=== PATIENT | male | born 1995 ===

== ENCOUNTER 2025-01-13 19:02 | Inpatient (IN) | payer OTHER, SELFPAY ==
[2025-01-13] VITALS (9 sets, daily range): BP systolic 128–159; BP diastolic 83–102; BMI 33.2
[2025-01-13 14:54] LABS: Glucose - Point of Care 109 mg/dl (70-99)
--- NOTE | 2025-01-13 15:13 | ED.GENMED ---
History of Present Illness
<DAMI Armenta - Last Filed: 01/13/25 18:59>
General
Chief Complaint: Seizure
Source: patient
Exam Limitations: none
Time Seen by Provider: 01/13/25 15:11
Nursing documentation reviewed up to this point in time: agreed with
History of Present Illness
History of Present Illness:
Patient is a 29-year-old male presents to the ER for evaluation. Patient is from [facility].
I spoke with staff from the [facility]. Patient arrived to their facility 5 AM this morning he was very tachycardic and had orthostatic hypotension. They gave him 25 mg of Phenergan 2l of fluids and he seemed to improve. They sent him back to
his cell and prior to arrival patient apparently was standing and fell and hit his head. There was no seizure activity witnessed however pt was given ATivan 2 mg IV DIRECTOR RETIREMENT.
Patient presents to the ER awake alert he is able to give questions he complains of feeling nauseous and jittery. He admits to using fentanyl and last used yesterday. He denies any obvious benzo use but it is unclear of what was in the fentanyl as
well.
He denies any alcohol use.
He denies any pain. no history of seizures.
Pt was recently admitted to [facility]
Review of Systems
<DAMI Armenta - Last Filed: 01/13/25 18:59>
Review of Systems
Allergies reviewed?: Yes
All Other Systems: ROS reviewed and negative except as documented in HPI and ROS
Constitutional: Reports no symptoms
Respiratory: Reports no symptoms
Cardiac: Reports no symptoms
ABD/GI: Reports nausea
Musculoskeletal: Reports no symptoms
Skin: Reports no symptoms
Neurological: Reports other ('I feel off )
Psychiatric: Reports no symptoms
Phy Exam
<DAMI Armenta - Last Filed: 01/13/25 18:59>
General Physical Exam
General Presentation: no apparent distress
General age: appears stated age
General Skin: warm and dry
General Habitus: normal
General Mental: alert
General Hydration: dry mucous membranes
Cardiovascular Exam
Cardiovascular Exam: tachycardia
Pulmonary Exam
Pulmonary Exam: lungs clear and no respiratory distress
Neurological Exam
Neurological Exam: alert, oriented x3 and other (Tremulous)
Musculoskeletal Exam
Musculoskeletal Exam: full ROM
Skin Exam
Skin Exam: normal color and warm/dry
Psychiatric Exam
Psychiatric Exam: normal mood/affect
Course
<DAMI Armenta - Last Filed: 01/13/25 18:59>
Orders/Labs/Results
Orders:
Orders
01/13/25 15:29
Electrocardiogram (*1) Stat
Reason for Study: Abdominal Pain
Cardiac Monitoring- Treatment ONCE
EKG- Treatment ONCE
IV Insert/Care/Rem.- Treatment PRN
0.9% Sodium Chloride 1000 ml [Nss] 1,000 ml IV BOLUS
Lorazepam [Ativan] 1 mg IV NOW STA
Ondansetron Injectable [Zofran] 4 mg IV NOW STA
01/13/25 15:31
CT Head W/o Iv Contrast Urgent
Comment:
Reason For Exam: trauma
01/13/25 15:44
Alcohol Urgent
Complete Blood Count/With Diff Urgent
Comprehensive Metabolic Panel Urgent
Creatine Phosphokinase Urgent
Comment: ADDON
Magnesium Urgent
Comment: ADDON
Prolactin Urgent
Comment: ADDON
01/13/25 16:01
Prochlorperazine [Compazine] 10 mg IV NOW STA
01/13/25 16:23
Add On- LAB Urgent
Tests Added?: serum alcohol
01/13/25 16:57
COVID-19 Antigen Urgent
Source: Nasal Swab
Influenza A+B Rapid Molecular Urgent
ARI Source: Nasal Swab
Specimen Description:
01/13/25 17:20
0.9% Sodium Chloride 500 ml [Nss] 500 ml IV BOLUS
Lorazepam [Ativan] 1 mg IV NOW STA
01/13/25 18:02
Lorazepam [Ativan] 1 mg IV NOW STA
01/13/25 18:39
Admit/Transfer Patient As Directed
Co-Sign Provider:
Level of Care: Inpatient admission
Assign to:: IMU- Intermediate Care
Physician / Group: Denver Macedo
Diagnosis: opioid withdraw
Reason for Hospitalization: opioid withdraw
Expected length of stay greater than two midnights?: Yes
ELOS- Estimated Length of Stay in days: 3
I certify the patient meets the requirements for IP care: Yes
PRN Pain Medication Management As Directed
May give lesser potent ordered pain med per pt: Yes
preference::
Protocol:: Medication orders for pain may be administered in a
manner that supports deferring to patient preference
when the pt is:
- Requesting an ordered lesser potent pain medication.
Least to most potent pain medications are defined
as: acetaminophen < NSAID < tramadol < opioids
(morphine, oxycodone, hydromorphone).
- Requesting a lesser dose of the same medication IF
ORDERED.
- Requesting a less intrusive route of administration
if both routes are prescribed by the provider (PO <
IV).
01/13/25 18:45
NEUROLOGY CONSULT Urgent
Consulting Provider: Kimberly Gutierrez
Was physician already notified: Yes
Reason for consult: seizure /withdrawl
01/13/25 18:48
Add On- LAB Urgent
Tests Added?: cpk, prolactin , magnesium
01/13/25 18:58
Urine Drug Abuse Screen Urgent
01/13/25 19:17
Fentanyl, Urine Urgent
Urine Drug Abuse Screen Urgent
Date Specimen was Collected: 01/13/25
Time Specimen was Collected: 19:16
Abnormal Lab Results
01/13/25 01/13/25
14:52 15:44
WBC 11.4 H 10^3/uL
(4.8-10.8)
Abs Immat Gran (auto) 0.1 H 10^3/uL
(0-0.05)
Absolute Neuts (auto) 9.9 H 10^3/uL
(1.4-6.5)
Absolute Lymphs (auto) 1.0 L 10^3/uL
(1.2-3.4)
Immature Gran % 0.8 H %
(0-0.5)
Neutrophils % 86.9 H %
(42.2-75.2)
Lymphocytes % 8.8 L %
(20.5-51.1)
Glucose 115 H mg/dl
(70-99)
AST 133 H U/L
(17-59)
ALT 151 H U/L
(0-50)
Creatine Kinase 289 H U/L
(55-170)
POC Glucose 109 H mg/dl
(70-99)
01/13/25 15:44
01/13/25 15:44
Vital Signs
Initial and Last Documented VS:
Initial Vital Signs
Temp Pulse Resp BP Pulse Ox
98.7 F 106 20 150/83 100
01/13/25 14:45 01/13/25 14:45 01/13/25 14:45 01/13/25 14:45 01/13/25 14:45
Last Documented Vital Signs
Temp Pulse Resp BP Pulse Ox
98.5 F 100 15 139/90 100
01/13/25 18:32 01/13/25 19:15 01/13/25 19:15 01/13/25 19:00 01/13/25 19:00
Windlace Machine Operator consulted with Physician
Windlace Machine Operator consulted with physician?: Yes
Name of Physician Consulted: Juanah
<Puma Luna MD - Last Filed: 01/13/25 20:02>
Orders/Labs/Results
Orders:
Orders
01/13/25 15:29
Electrocardiogram (*1) Stat
Reason for Study: Abdominal Pain
Cardiac Monitoring- Treatment ONCE
EKG- Treatment ONCE
IV Insert/Care/Rem.- Treatment PRN
0.9% Sodium Chloride 1000 ml [Nss] 1,000 ml IV BOLUS
Lorazepam [Ativan] 1 mg IV NOW STA
Ondansetron Injectable [Zofran] 4 mg IV NOW STA
01/13/25 15:31
CT Head W/o Iv Contrast Urgent
Comment:
Reason For Exam: trauma
01/13/25 15:44
Alcohol Urgent
Complete Blood Count/With Diff Urgent
Comprehensive Metabolic Panel Urgent
Creatine Phosphokinase Urgent
Comment: ADDON
Magnesium Urgent
Comment: ADDON
Prolactin Urgent
Comment: ADDON
01/13/25 16:01
Prochlorperazine [Compazine] 10 mg IV NOW STA
01/13/25 16:23
Add On- LAB Urgent
Tests Added?: serum alcohol
01/13/25 16:57
COVID-19 Antigen Urgent
Source: Nasal Swab
Influenza A+B Rapid Molecular Urgent
ARI Source: Nasal Swab
Specimen Description:
01/13/25 17:20
0.9% Sodium Chloride 500 ml [Nss] 500 ml IV BOLUS
Lorazepam [Ativan] 1 mg IV NOW STA
01/13/25 18:02
Lorazepam [Ativan] 1 mg IV NOW STA
01/13/25 18:39
Admit/Transfer Patient As Directed
Co-Sign Provider:
Level of Care: Inpatient admission
Assign to:: IMU- Intermediate Care
Physician / Group: Denver Macedo
Diagnosis: opioid withdraw
Reason for Hospitalization: opioid withdraw
Expected length of stay greater than two midnights?: Yes
ELOS- Estimated Length of Stay in days: 3
I certify the patient meets the requirements for IP care: Yes
PRN Pain Medication Management As Directed
May give lesser potent ordered pain med per pt: Yes
preference::
Protocol:: Medication orders for pain may be administered in a
manner that supports deferring to patient preference
when the pt is:
- Requesting an ordered lesser potent pain medication.
Least to most potent pain medications are defined
as: acetaminophen < NSAID < tramadol < opioids
(morphine, oxycodone, hydromorphone).
- Requesting a lesser dose of the same medication IF
ORDERED.
- Requesting a less intrusive route of administration
if both routes are prescribed by the provider (PO <
IV).
01/13/25 18:45
NEUROLOGY CONSULT Urgent
Consulting Provider: Kimberly Gutierrez
Was physician already notified: Yes
Reason for consult: seizure /withdrawl
01/13/25 18:48
Add On- LAB Urgent
Tests Added?: cpk, prolactin , magnesium
01/13/25 18:58
Urine Drug Abuse Screen Urgent
01/13/25 19:17
Fentanyl, Urine Urgent
Urine Drug Abuse Screen Urgent
Date Specimen was Collected: 01/13/25
Time Specimen was Collected: 19:16
Abnormal Lab Results
01/13/25 01/13/25
14:52 15:44
WBC 11.4 H 10^3/uL
(4.8-10.8)
Abs Immat Gran (auto) 0.1 H 10^3/uL
(0-0.05)
Absolute Neuts (auto) 9.9 H 10^3/uL
(1.4-6.5)
Absolute Lymphs (auto) 1.0 L 10^3/uL
(1.2-3.4)
Immature Gran % 0.8 H %
(0-0.5)
Neutrophils % 86.9 H %
(42.2-75.2)
Lymphocytes % 8.8 L %
(20.5-51.1)
Glucose 115 H mg/dl
(70-99)
AST 133 H U/L
(17-59)
ALT 151 H U/L
(0-50)
Creatine Kinase 289 H U/L
(55-170)
POC Glucose 109 H mg/dl
(70-99)
01/13/25 15:44
01/13/25 15:44
Vital Signs
Initial and Last Documented VS:
Initial Vital Signs
Temp Pulse Resp BP Pulse Ox
98.7 F 106 20 150/83 100
01/13/25 14:45 01/13/25 14:45 01/13/25 14:45 01/13/25 14:45 01/13/25 14:45
Last Documented Vital Signs
Temp Pulse Resp BP Pulse Ox
98.5 F 100 15 139/90 100
01/13/25 18:32 01/13/25 19:15 01/13/25 19:15 01/13/25 19:00 01/13/25 19:00
Alidalt;DAMI Armenta - Last Filed: 01/13/25 18:59>
MDM/Problems Addressed
Differential Diagnosis Includes:
Not limited withdrawal, seizure, dehydration, drug abuse
MDM/Problems Addressed:
As documented patient is a 29-year-old male sent from [facility] for evaluation. Patient is new to them and today presented very orthostatic and tachycardic when he first arrived. He initially was given Phenergan and IV
fluids at the [facility] earlier .Patient then however had a witnessed fall in his cell. There was a question of seizure. However staff did not visualize seizures.
patient presents awake alert very tremulous but able to give history. He admits to last using fentanyl yesterday. Patient was given fluids and several doses of Ativan nausea medicine fluids. He is tachycardic and very tremulous
1800:
alf guards reported that just now had a witnessed seizure by loan workout officer lasted approximately 10 seconds. Residential guards report patient started to stare and then was not responding and started having general shakes lasting approximately
10 seconds. I was called in, pt was tremulous however he is attempting to answer questions but does seem still little confused. Patient was just given Ativan now. Patient was eval by ED physician. CT head negative. etoh neg . Patient is
afebrile white count elevated 11.4 stable hemoglobin normal renal function, LFTs elevated 133 and 151 with normal alk phos and normal total bili
Patient will require admission for further evaluation of tremors/possible seizures withdrawal. Patient will require ICU level of admission.
Patient has received multiple doses of Ativan. Case discussed admitting hospitalist. I did review case with neurology as recommended CPK prolactin magnesium added onto labs. Will s attempt to get urine
Patient did report that he was recently at [facility] records obtained which were limited from January 04, he was admitted to the ICU
Chronic conditions affecting care:
drug abuse
<DAMI Armenta - Last Filed: 01/13/25 18:59>
*Radiology
Radiology exam reviewed: radiology read reviewed
*Pulse Oximetry
Patient hypoxic: no
*EKG
Interpreted by ED Provider?: Yes
Heart Rate: 103
Rate: tachycardiac
Interval: long QT
*Critical Care Note
Total Time (30-74mins, 75-104mins- exclusive of procedures): Not Applicable
comment:
Critical care statement: A total of 40 minutes of critical care time was provided for this patient. This includes management of unstable vital signs, evaluation of the patient at bedside, reviewing the patient's pertinent medical records, discussion
with consultants, review of old EKGs and review of pertinent medical records. This time with separate from time utilized to perform the aforementioned documented procedures
<DAMI Armenta - Last Filed: 01/13/25 18:59>
Patient Management
Discussion with other providers: Hospitalist and Balance Staff Staker (neuro DR Gutierrez )
ED Attending Note
<DAMI Armenta - Last Filed: 01/13/25 18:59>
-
Portions of this chart may have been created with voice recognition software.� Occasional wrong word or��sound alike� substitutions may have occurred due to the inherent limitations of voice recognition software.
<Puma Luna MD - Last Filed: 01/13/25 20:02>
ED Attending Note
Patient seen and examined by attending physician: Yes
ED Attending Note:
Patient presents to ED from [facility] after seizure-like activity noted when he fell down. Patient was admitted last night, when initially he was found to be hypotensive with withdrawal-like symptoms. Patient does admit to
having used fentanyl 24 hours ago. Patient feels as though he is going to withdrawal, which she has experienced in the past. In fact, he was admitted at [facility] and treated (detox) last week. Patient denies chest pain. Denies
palpitations. Patient does admit to nausea sensation. Denies diarrhea. Denies shortness of breath. Denies fever. Denies blurred vision. Denies dizziness. Denies loss of sensation or weakness. Denies tongue biting. Denies urinary or bowel
incontinence.
Physical Exam
General: mild distress, acutely ill. afebrile. tachycardic.
Head: nc/at. eomi
Neck: supple. normal range of motion.
Heart: tachycardic, no murmur.
Lungs: no acute respiratory distress. clear bilaterally
Abdomen: normal bowel sounds. not tender.
Neuro: alert and oriented x 3. no focal neurological deficits. tremulous
Skin: no rash
Psychiatric: cooperative but anxious appearing
Extremities: no edema. no calf tenderness.
Patient requiring multiple doses of Ativan after initial treatment, secondary to continuous tremulous behavior and diaphoresis. Despite all improvement, patient noted to have seizure episode lasting less than 2 minutes, with spontaneous resolution.
As such, decision made to admit the patient for further evaluation and treatment. Patient will be admitted to ICU.
Discharge Plan
Departure
Patient Disposition: Admit
Date of Disposition: 01/13/25
Time of Disposition: 18:10
Admit to: ICU
Admit to doctor: hospitalist
Presentation/result/management discussed w/ accepting MD/DO: Hospitalist
Patient with high blood pressure during this ER visit?: Yes
Condition: Fair
Covid-19: Not Applicable
Discharge Problem:
Seizure, Acute drug withdrawal syndrome
Interventions
Interventions:
*Risk Screen - Suicide Last Done: 01/13/25 14:45
*General Assessment Last Done: 01/13/25 14:45
*Neglect/Abuse Screening Last Done: 01/13/25 14:45
ED- Cardiac Assessment Last Done: 01/13/25 15:24
ED- Neurological Assessment Last Done: 01/13/25 15:24
ED-Psychological Assessment Last Done: 01/13/25 15:24
ED- Pulmonary Assessment Last Done: 01/13/25 15:24
[2025-01-13] MEDS: NSS 1000 IV ×2 (15:47→21:35)
[2025-01-13] MEDS: ATIVAN 1 MG IV ×3 (15:50→18:10)
[2025-01-13 15:54] LABS: % Basophils 0.1 % (0-2); % Immature Granulocytes 0.8 % (0-0.5); % Lymphocytes 8.8 % (20.5-51.1); % Monocytes 3.4 % (1.7-9.3); % Neutrophils 86.9 % (42.2-75.2); Absolute Immature Granulocytes 0.1 10^3/uL (0-0.05); Absolute Monocytes 0.4 10^3/uL (0.1-0.6); Absolute Neutrophils 9.9 10^3/uL (1.4-6.5); Hematocrit 41.4 % (39.0-52.0); Hemoglobin 13.8 g/dL (13.0-18.0); Mean Corp Hgb Conc. 33.3 g/dL (33.0-37.0); Mean Corpuscular Hgb 28.6 pg (27.0-31.0); Mean Corpuscular Volume 85.9 fL (80.0-94.0); Mean Platelet Volume 9.9 fL (7.4-10.4); Nucleated Red Blood Cells % 0 % (-); Platelet Count 320 10^3/uL (130-400); Red Blood Cell Count 4.82 10^6/uL (4.70-6.10); Red Cell Dist. Width 13.7 % (11.5-14.5); White Blood Cell Count 11.4 10^3/uL (4.8-10.8)
[2025-01-13 16:08] LABS: ALT (SGPT) 151 U/L (0-50); AST (SGOT) 133 U/L (17-59); Albumin 4.7 g/dl (3.5-5.0); Alkaline Phosphatase 98 U/L (38-126); Blood Urea Nitrogen 12 mg/dl (9-20); Calcium 8.8 mg/dl (8.4-10.2); Carbon Dioxide 24 mmol/L (22-30); Chloride 103 mmol/L (98-107); Estimated Creatinine Clearance > 125 ml/min; Glucose 115 mg/dl (70-99); Potassium 3.5 mmol/L (3.5-5.1); Sodium 138 mmol/L (135-145); Total Bilirubin 1.3 mg/dl (0.2-1.3); eGFR > 60.00
[2025-01-13 16:56] LABS: Alcohol None Detected
[2025-01-13 17:47] LABS: COVID-19 Antigen Negative (Negative)
--- NOTE | 2025-01-13 18:09 | HPS.HSE ---
Family Physician
-
Family Physician: Facility [facility]
Chief Complaint
-
withdraw seizure
History of Present Illness
Patient is a 29-year-old male with past medical history significant for opioid dependency who presented to [facility] ED for evaluation for withdraw [facility]. Correctional facility infirmary staff
reported to ED staff that patient arrived at facility approximately 0500 today and presented with tachycardia and orthostatic hypotension. He was administered Phenergan 25mg and gave 2 liter IVF bolus, patient improved and was sent to cell. Just
prior to sending to ED for evaluation patient fell and hit head, no seizure activity was observed at that time. ED reported patient had witnessed seizure in ED by correction staff, where patient started to stare, was not responding and having
shaking for approximately 10 seconds. Patient states he uses anywhere from 4 bags to an entire bundle of fentanyl a day. Last used was yesterday, unknown quantity yesterday. Patient stated he spent 5 days at [facility] for seizure withdraw
with admission on [facility] Saturday (01/03/2025), he states he was discharged with no home medications. Patient denies any dizziness, nausea, vomiting or diarrhea.
Medical History
Past Medical History
Past Medical History: Reports None
Past Surgical History: Reports None
Social History
Tobacco: Non-smoker
Alcohol: None
Drug: Narcotics (Fentanyl 4 bags to a bundle per day for a long time (does not quanitfy))
Personal: Single
Living: With Family
Employment: Employed
Family History
Family History: Not pertinent
Allergies / Home Medications
Allergies reflects when Allergies were last updated in [employer].
Home Medications with original date entered in [employer]
Allergy/Medication List:
Allergies
Allergy/AdvReac Type Severity Reaction Status Date / Time
ondansetron [From Zofran] Allergy AGITATION Verified 01/13/25 15:38
Penicillins Allergy Unknown Verified 01/13/25 14:44
Home Medications
acetaminophen 300 mg-codeine 30 mg tablet 1 tab PO .TAPER 01/13/25
clonazepam 2 mg tablet 2 mg PO .TAPER 01/13/25
clonidine HCl 0.1 mg tablet 0.1 mg PO .TAPER 01/13/25
loperamide 2 mg tablet (Anti-Diarrheal (loperamide)) 2 mg PO TIDPRN PRN diarrhea 01/13/25
ondansetron HCl 4 mg tablet 4 mg PO Q8HPRN PRN nausea 01/13/25
Review of Systems
-
History Source: Patient
Constitutional: Reports No Symptoms
EENT: Reports No Symptoms
Respiratory: Reports No Symptoms
Cardiac: Reports No Symptoms
Abdomen/GI: Reports No Symptoms
: Reports No Symptoms
Musculoskeletal: Reports No Symptoms
Skin: Reports No Symptoms
Neurological: Reports Other (tremors and just feels off )
Endocrine: Reports No Symptoms
Hematologic/Lymphatic: Reports No Symptoms
Psych: Reports No Symptoms
Physical Exam
Vital Signs
Vital Signs
Temp Pulse Resp BP Pulse Ox
98.6 F 97 20 145/102 100
01/13/25 16:59 01/13/25 17:00 01/13/25 17:00 01/13/25 17:00 01/13/25 17:00
Physical Exam
General: Well Developed, Well Nourished, No Apparent Distress, Conversant and Obese
HEENT: NormoCephalic, Moist mucous membranes, Atraumatic, [place] Conjunctivae, Nose Appears Normal and Ears Appear Normal
Respiratory: Clear and Non Labored Respirations
Cardiac: S1/S2, Regular Rhythm and Tachycardia; No Murmur, Rub or Gallop
Breast: Deferred by me
GI: Soft, Non Tender, Non Distended and Normal Bowel Sounds; No Organomegaly
Rectal: Deferred by Provider
Genito-urinary: Deferred by me
Musculoskeletal: No Clubbing, No Cyanosis and No Edema
Skin: No Rash
Neuro: Awake, Alert, AO x 3, Nonfocal/grossly intact and Tremors
Psych: Calm and Intact Judgment/Insight
Laboratory Results
-
01/13/25 15:44
01/13/25 15:44
Laboratory Results
Total Bilirubin 1.3 mg/dl (0.2-1.3) 01/13/25 15:44
AST 133 U/L (17-59) H 01/13/25 15:44
ALT 151 U/L (0-50) H 01/13/25 15:44
Alkaline Phosphatase 98 U/L (38-126) 01/13/25 15:44
Data Reviewed
-
CT Scan: Report Reviewed by me (Head: No evidence of acute intracranial abnormality.)
Medical Tests (Nuc Med, Echo, EKG etc): Report Reviewed by me (EKG: SINUS TACHYCARDIA LEFT AXIS DEVIATION PROLONGED QT)
Lab Data: Labs Reviewed by me (WBC 11.4, AST 133, ALT 151)
Impression/Plan
-
IMPRESSION/PLAN:
#opioid withdraw with seizure??
Recent admission to [facility] with acute WDS and questionable Sz; ICU admission and Precedex; awaiting records
EKG: SINUS TACHYCARDIA
LEFT AXIS DEVIATION
PROLONGED QT
Head CT: No evidence of acute intracranial abnormality.
WBC 11.4, AST 133, ALT 151
- Admit to IMU
- Consult Neurology
- COWS protocol
- Neurochecks
- PRN Ativan
- Clonidine ATC
- supportive care
Code status: Full code
DVT prophylaxis: SCDs
[2025-01-13] MEDS: NSS 500 IV (18:17)
--- NOTE | 2025-01-13 18:41 | W.PN.UPDATE ---
Update Note
Progress Note Update
HPI
29M HX [facility] seen at ER:
- patient arrived to facility at 5 am , tachycardic and hypotensive.
- gave him 25 mg of Phenergan 2l of fluids at [facility] and he seemed to improve.
- then on his way back to the cell, and prior to arrival patient apparently was standing and fell and hit his head.
- no witnessed seizure activity witnessed however pt was given Ativan 2 mg IV PORTER SAMPLE CASE.
At ER:
Patient presents to the ER awake alert he is able to give questions he complains of feeling nauseous and jittery.
He admits to using fentanyl and last used yesterday.
He denies any obvious benzo use but it is unclear of what was in the fentanyl as well.
He denies any alcohol use.
PHX
Substance use disorder
Reviewed VS: unremarkable VSS
PE
Gen: awake , tremulous
HEENT: anicteric
Neck: supple
Lungs: Clear
Cor: RRR S1 S2
Abdomen: soft abdomen
FINISHED CARPET INSPECTOR: AAO3
MS: no edema
Psych: limited
Data
WCC 11.4
Unremarkable CMP
AST 133
ALT 151
Pending UDS
Undetectable ETOH
NEG Covid
NEG HCT
ASSESSMENT & PLAN
Reported witnessed Sz at ER bu=y correction officers but CONSOLE ASSEMBLER dispute the Szs : Thus SZ vs. tremors for acute WDS
Suspect acute fentanyl WDS
Fentanyl use disorder: last use yesterday
NEG HCT
Recent admission to [facility] acute WDS and questionable Sz ; ICU admission and precedex
- Obtain records form [facility]
- s/p IV Ativan total 3 mg @ ER
- IV Ativan 2 mg q3h PRN
- IV NS
- Observe WDS
- Neuro consult
DVT Px: SCD
Full code
IMU
[2025-01-13 19:16] LABS: Creatine Phosphokinase 289 U/L (55-170); Magnesium 2.1 mg/dl (1.6-2.3)
[2025-01-13 19:45] LABS: Amphetamines Negative (Negative); Barbiturates Negative (Negative); Benzodiazepines Positive (Negative); Buprenorphine Negative (Negative); Cocaine Negative (Negative); Marijuana Negative (Negative); Methadone Negative (Negative); Methamphetamines Negative (Negative); Opiates Positive (Negative); Phencyclidine Negative (Negative); Tricyclic Antidepressants Negative (Negative)
[2025-01-13 19:53] LABS: Fentanyl, Urine Positive (Negative)
[2025-01-13 20:06] LABS: Prolactin 12.5 ng/ml (3.7-17.9)
[2025-01-13] MEDS: ATIVAN 2 MG IV (21:35)
[2025-01-14] VITALS (13 sets, daily range): BP systolic 121–167; BP diastolic 66–107
[2025-01-14] MEDS: CATAPRES PO ×2 (00:09→05:14)
[2025-01-14] MEDS: ATIVAN 2 MG IV ×2 (00:31→04:13)
--- NOTE | 2025-01-14 05:28 | PTCARENOTE ---
Patient arrived into room 3341 from ER approx 1999. Correctional facility guards at bedside managing otto. COWS 22-29, mediated per the MAR. Patient diaphoretic, very tremulous, vomiting large amounts of fluid. Pt reporting 'coffee ground
vomit', upon visual inspection emesis is brown liquid. Pt constantly asking for ice chips. Education provided to keep NPO d/t vomiting. Patient unable to void, straight cathed this morning for 450mL straw colored urine. Foams applied to elbows as
they are red and blanching. After straight cathing while talking with the patient, patient's closed eyes and eyes fluttered for 10 seconds. Pt opened eyes and immediately stated 'that was my seizure activity'. VS unchanged. DAMI Sewell made aware of
events; 'seizure activity' after straight cathing. Pt had recently received IV Ativan for withdrawal symptoms.
3 complete bed changes done for patient after vomiting in bed and on himself on gown and on sheets. Emesis bag and basin bucket at bedside within reach.
--- NOTE | 2025-01-14 09:03 | CON.NEURO ---
Consultation
Order
Date of Consultation: 01/14/25
Requesting Provider:
Reason for Consult:
Neurology Consultation Note.
HPI: This is a 29-year-old man who presented to [facility] on 01/13/2025 with withdrawal symptoms. According to EMR patient had tachycardia that he developed in the [facility] where he was given fluids Ativan and Phenergan.
Barry was witnessed to have seizure presented with diarrhea and and unresponsiveness with associated shaky aching lasting for 10 seconds.
Patient was recently hospitalized [facility] with withdrawal seizure.
VS: 150/83-159/100, 106�118, afebrile
EKG: sinus tachycardia at 103, QTc Int : 521 ms
PDMP: No prescribed medications
Labs: WBCs�11.4, glucose�115, normal sodium, potassium, magnesium, AST�133, ALT�151, creatinine kinase�289, normal prolactin, urine tox�positive for fentanyl, benzodiazepines, SARS-CoV-2�negative.
CT head wo contrast�no acute abnormalities
MAR: Lorazepam 2 mg given on 01/13/25 at 21:35 and on 01/14/25 at 00:31, 04:13.
PMH: opioid dependance, history of symptomatic seizures?
PSH: none
SH: lived with mother before recent incarceration, works in heating and conditioning service
FH: Father�alcohol addiction
All: Penicillin, Zofran
ROS: Constitutional: Negative. Negative for chills, fever and unexpected weight change.
HENT: Negative for ear pain, hearing loss, tinnitus and trouble swallowing.
Eyes: Negative. Negative for photophobia, pain and visual disturbance.
Respiratory: Negative for cough, choking and shortness of breath.
Cardiovascular: Negative for chest pain, palpitations and leg swelling.
Gastrointestinal: Positive for nausea, hiccups
Endocrine: Negative. Negative for cold intolerance.
Genitourinary: Negative for dysuria, flank pain and urgency.
Musculoskeletal: Negative for back pain, gait problem, neck pain and neck stiffness.
Skin: Negative for rash.
Allergic/Immunologic: Negative. Negative for immunocompromised state.
Neurological: Positive for intermittent tremor
Psychiatric/Behavioral: Negative for behavioral problems, confusion and hallucinations.
General: Well developed. In no acute distress.
Cardio: Regular rate and rhythm without murmur. Extremities are without cyanosis or edema.
Neuro:
Mental Status: Alert, oriented to person, place, and date. Impaired attention and recall good fund of knowledge. Follows complex requests. Comprehension, naming, and repetition intact.
Cranial Nerves: Pupils are equally round and reactive to light. EOMs full. Blinks to threat bilaterally no ptosis. No nystagmus. V1-V3 intact to light touch and pinprick bilaterally, symmetric. Face symmetric. Normal hearing AU. The palate
elevated well. SCMs and traps 5/5. Tongue midline. No dysarthria.
Motor: Normal bulk and tone. No pronator or arm drift. Strength 5/5 throughout. No clonus.
Reflexes: Limited exam due to positioning cooperation and restraints
Sensory: Limited exam due to poor attention
Coordination: Intermittent right leg tremor
Gait: deferred
Assessment and Plan:
I. Early posttraumatic seizure�vs epilepsy
II. Mixed encephalopathy (toxic, metabolic)
III. Opioid dependence
-Seizure precautions
-Please obtain medical records from [facility]
-Ativan 2 mg IV as needed for seizures lasting for 2 minutes
-Start IV thiamine
-Brain MRI without reid
-Addictive psychiatry consult
I personally reviewed all radiology and labs along with past medical records pertinent to current medical problems. Total time spent in patient care is 60 minutes.
Thank you for allowing us to participate in the care of this patient. We will continue to follow. Please do not hesitate to contact us with any questions or concerns.
Subjective/Objective
Subjective Data
Date of Service: January 14, 2025
Objective Data
Vital Signs
Temp Pulse Resp BP Pulse Ox
37.2 C 93 18 140/88 99
01/14/25 07:53 01/14/25 07:30 01/14/25 07:30 01/14/25 06:00 01/14/25 07:30
Lab Results
01/13/25 15:44
01/13/25 15:44
Sodium 138 mmol/L (135-145) 01/13/25 15:44
Potassium 3.5 mmol/L (3.5-5.1) 01/13/25 15:44
BUN 12 mg/dl (9-20) 01/13/25 15:44
Glucose 115 mg/dl (70-99) H 01/13/25 15:44
Calcium 8.8 mg/dl (8.4-10.2) 01/13/25 15:44
Ur Buprenorphine Negative (Negative) 01/13/25 19:17
Patient Allergies
Penicillins Allergy (Verified 01/13/25 14:44)
Unknown
ondansetron [From Zofran] Adverse Reaction (Verified 01/13/25 20:11)
Agitation
Medications
-
Active Medications
Generic Name Dose Route Start Last Admin
Trade Name Freq PRN Reason Stop Dose Admin
Buprenorphine 8 mg 01/13/25 20:03
Buprenorphine 8 Mg Sl Tablet SL
PRN PRN
COWS greater than/equal to 8
Protocol
Buprenorphine 0 mg 01/14/25 08:00
Buprenorphine 8 Mg Sl Tablet SL 01/14/25 08:01
ONCE ONE
Buprenorphine 0 mg 01/15/25 08:00
Buprenorphine 8 Mg Sl Tablet SL 01/29/25 07:59
DAILY NICOLA
Buprenorphine 4 mg 01/14/25 08:00
Buprenorphine 2 Mg Sl Tablet SL 01/15/25 08:00
ONCE PRN PRN
opioid cravings/withdrawal sx
Clonidine HCl 0.1 mg 01/14/25 00:00 01/14/25 05:14
Clonidine 0.1 Mg Tablet PO 02/11/25 00:00 Not Given
Q6 NICOLA
Sodium Chloride 1,000 mls @ 125 mls/hr 01/13/25 20:03 01/13/25 21:35
Nss IV 1,000 mls
.Q8H NICOLA Administration
Lorazepam 2 mg 01/13/25 20:03 01/14/25 04:13
Lorazepam 2 Mg/Ml Vial IV 02/10/25 20:02 2 mg
Q3HPRN PRN Administration
seizure/withdraw
Sodium Chloride 0 flush 01/13/25 21:00
Sodium Chloride 0.9% (Flush) Syringe IV 02/10/25 20:59
PER PROTOCOL NICOLA
Tizanidine HCl 2 mg 01/13/25 20:03
Tizanidine 2 Mg Tablet PO 02/10/25 20:02
Q6HPRN PRN
restlessness,agitation,anxiety
Home Medications
�Medication �Instructions �Recorded
acetaminophen 300 mg-codeine 30 mg 1 tab PO .TAPER 01/13/25
tablet
clonazepam 2 mg tablet 2 mg PO .TAPER 01/13/25
clonidine HCl 0.1 mg tablet 0.1 mg PO .TAPER 01/13/25
loperamide 2 mg tablet 2 mg PO TIDPRN PRN diarrhea 01/13/25
(Anti-Diarrheal (loperamide))
ondansetron HCl 4 mg tablet 4 mg PO Q8HPRN PRN nausea 01/13/25
Vital Signs and Labs
-
Vital Signs and Labs:
Vital Signs
Temp Pulse Resp BP Pulse Ox
37.2 C 93 18 140/88 99
01/14/25 07:53 01/14/25 07:30 01/14/25 07:30 01/14/25 06:00 01/14/25 07:30
Lab Results
01/13/25 15:44
01/13/25 15:44
Sodium 138 mmol/L (135-145) 01/13/25 15:44
Potassium 3.5 mmol/L (3.5-5.1) 01/13/25 15:44
BUN 12 mg/dl (9-20) 01/13/25 15:44
Glucose 115 mg/dl (70-99) H 01/13/25 15:44
Calcium 8.8 mg/dl (8.4-10.2) 01/13/25 15:44
Ur Buprenorphine Negative (Negative) 01/13/25 19:17
Medications
-
Medications:
Generic Name Dose Route Start Last Admin
Trade Name Freq PRN Reason Stop Dose Admin
Buprenorphine 8 mg 01/13/25 20:03
Buprenorphine 8 Mg Sl Tablet SL
PRN PRN
COWS greater than/equal to 8
Protocol
Buprenorphine 0 mg 01/14/25 08:00
Buprenorphine 8 Mg Sl Tablet SL 01/14/25 08:01
ONCE ONE
Buprenorphine 0 mg 01/15/25 08:00
Buprenorphine 8 Mg Sl Tablet SL 01/29/25 07:59
DAILY NICOLA
Buprenorphine 4 mg 01/14/25 08:00
Buprenorphine 2 Mg Sl Tablet SL 01/15/25 08:00
ONCE PRN PRN
opioid cravings/withdrawal sx
Clonidine HCl 0.1 mg 01/14/25 00:00 01/14/25 05:14
Clonidine 0.1 Mg Tablet PO 02/11/25 00:00 Not Given
Q6 NICOLA
Sodium Chloride 1,000 mls @ 125 mls/hr 01/13/25 20:03 01/13/25 21:35
Nss IV 1,000 mls
.Q8H NICOLA Administration
Lorazepam 2 mg 01/13/25 20:03 01/14/25 04:13
Lorazepam 2 Mg/Ml Vial IV 02/10/25 20:02 2 mg
Q3HPRN PRN Administration
seizure/withdraw
Sodium Chloride 0 flush 01/13/25 21:00
Sodium Chloride 0.9% (Flush) Syringe IV 02/10/25 20:59
PER PROTOCOL NICOLA
Tizanidine HCl 2 mg 01/13/25 20:03
Tizanidine 2 Mg Tablet PO 02/10/25 20:02
Q6HPRN PRN
restlessness,agitation,anxiety
Home Medications
-
Home Medications
acetaminophen 300 mg-codeine 30 mg tablet 1 tab PO .TAPER 01/13/25
clonazepam 2 mg tablet 2 mg PO .TAPER 01/13/25
clonidine HCl 0.1 mg tablet 0.1 mg PO .TAPER 01/13/25
loperamide 2 mg tablet (Anti-Diarrheal (loperamide)) 2 mg PO TIDPRN PRN diarrhea 01/13/25
ondansetron HCl 4 mg tablet 4 mg PO Q8HPRN PRN nausea 01/13/25
--- NOTE | 2025-01-14 09:26 | CM ---
Patient from [facility] with Hx fall/hit head, Fentanyl use disorder with Dx opioid withdrawal, seizure. Tox Screen +. Room air. Receiving Subutex, IVF, IV Ativan prn. Vomting with COWS 22-29 today per nursing.
[facility] (ph [phone]); clinical update provided as requested. Per Sadia, the patient had not revealed to [facility] staff that he was using fentanyl or other drugs. Provided phone # for IMU nurse as requested. The ph
for report [phone], fax [phone].
Plan return to [facility] with guards when medically ready.
[2025-01-14] MEDS: NSS 1000 IV ×2 (09:52→19:24)
[2025-01-14] MEDS: SUBUTEX 8 MG SL ×2 (10:32→21:13)
[2025-01-14 10:34] LABS: ALT (SGPT) 114 U/L (0-50); AST (SGOT) 53 U/L (17-59); Albumin 3.9 g/dl (3.5-5.0); Alkaline Phosphatase 85 U/L (38-126); Direct Bilirubin 0.3 mg/dl (0.0-0.4); Total Bilirubin 1.1 mg/dl (0.2-1.3); Total Protein 6.2 g/dl (6.3-8.2)
[2025-01-14] MEDS: FLOMAX 0.8 MG PO (11:24)
[2025-01-14] MEDS: THIAMINE INJECTION 100 MG IV (11:24)
[2025-01-14] MEDS: CATAPRES 0.1 MG PO ×2 (11:24→17:18)
[2025-01-14 12:54] LABS: Creatine Phosphokinase 421 U/L (55-170)
[2025-01-14 13:48] LABS: TSH Reflex To Free T4 0.44 uIU/ml (0.47-4.68)
--- NOTE | 2025-01-14 13:51 | W.PN.HOSP.TC ---
Addendum entered and electronically signed by Brady Holguin MD 01/14/25 13:57:
Prolonged QTc
-Prolonged QTc of 521 ms
-0 repeat EKG ordered today
-Okay to give Zofran if QTc improved
Original Note:
Today's Communication/Plan
-
see note
Assessment / Plan
Assessment / Plan
1. Opioid withdrawal
-Patient has been snorting Nucla for last 10 years or so
-Have history of withdrawal/seizures in the past
-UDS reviewed.
-Currently going through opioid withdrawal
-Maintain on COWS protocol, last check 29
-On buprenorphine per protocol
2. Nausea/vomiting
Diarrhea
-as part of withdrawal
-symptomatic care
3. Seizure episode
-neuro evaluation requested
-CT head neg
-Neurology recommended MRI brain
-As needed Ativan for further seizure episode
4. Urinary retention
-Bladder scan/straight cath protocol active, required straight cath x 2
-Flomax added to regimen
5. Rule out orthostatic hypotension
-Vital check ordered
DVT PPX heparin
FUll code
Total time spent : 53 mins
I personally saw and examined the patient.
I have reviewed all diagnostic interpretations and treatment plans as written.
Time includes patient management by me, time spent at the patients bedside, time to review lab and imaging results, discussing patient care, documentation in the medical record, and time spent with the family or caregiver and discussing care plan
with RN/Consultants.
Anticipated Discharge: 24 - 48 hours
Subjective/Interval History
-
Date of Service: January 14, 2025
Patient complains of nausea and vomiting
Remains somewhat disoriented
Diaphoretic
Objective Data
-
Labs:
Laboratory Results
01/14/25
09:59
Total Bilirubin 1.1
AST 53
ALT 114 H
Alkaline Phosphatase 85
Vital Signs:
Vital Signs
Temp Pulse Resp BP Pulse Ox
98.5 F 84 18 132/92 100
01/14/25 11:27 01/14/25 12:30 01/14/25 12:30 01/14/25 12:00 01/14/25 12:30
I&O
01/13/25 01/14/25 01/15/25
06:59 06:59 06:59
Output Total 850 / 850 250 / 250
Balance -850 / -850 -250 / -250
Review of Systems
-
Respiratory: Reports No Symptoms
Cardiac: Reports No Symptoms
Abdomen/GI: Reports Nausea, Vomiting and Diarrhea
Physical Exam
-
General: No Apparent Distress and Comfortable
HEENT: Negative PERRLA (b/l dilated pupils) or Oxygen
Respiratory: Clear to Auscultation
Cardiac: Regular Rhythm and S1/S2; Negative Murmur or Rub
GI: Soft, Nontender and Nondistended
Musculoskeletal: No Edema
Neuro: Awake, Alert, Oriented, No Motor Deficits and Nonfocal/Grossly Intact
Psych: Calm
[2025-01-14 14:17] LABS: Free T4 1.36 ng/dl (0.78-2.19)
--- NOTE | 2025-01-14 14:36 | EEGC.RPT ---
Continuous EEG Report
Recording
Start Date of Data Reviewed: 01/14/25
End Date of Data Reviewed: 01/14/25
Done with Video Recording: Yes
Electrocardiogram: Unremarkable
Report
TECHNICAL REMARKS:��This is a technically satisfactory eighteen channel record employing 21 disc electrodes applied according to a measured international 10-20 electrode placement system.��There were no significant technical difficulties.��The study
was done on a [employer] System.
�
CLINICAL HISTORY:�This is a 29-year-old man with history of seizures. This study was requested to look for epileptiform activity.
MEDICATIONS: Lorazepam, Buprenorphine
STUDY DURATION: 28 min, 40 sec
REPORT: �At the onset of the EEG, the patient is awake. The background activity consists of 11-12 Hz, persistent, posteriorly dominant, moderate in amplitude, symmetric, and rhythmic activity that is reactive to eye-opening with admixed 10-15
microvolts delta activity.� Anteriorly, it consists of a mixture of symmetric and rhythmic 5-10 microvolts, 15-20 beta activity, as well as central 6-7 Hz 10-20 microvolts theta activity. Intermittent generalized 5-7 Hz 10-20 microvolts activity
during wakefulness is present. Stepwise intermittent photic stimulation (1-31 Hz) did not induce any additional abnormalities. Drowsiness is characterized by low amplitude mixed frequency activity, decreased eye blinking, and muscle artifact. Prior
preparation was not performed. Excessive beta activity was present.
�
IMPRESSION: �This is an abnormal awake and drowsy EEG due to a mild generalized slowing. This finding indicates a mild encephalopathy that is not specific to etiology.� No epileptiform activity was seen.� If the clinical picture warrants, a
sleep-deprived awake and sleep record may be helpful.
--- NOTE | 2025-01-14 16:14 | PTCARENOTE ---
Pt's assessment as documented. Pt with nausea and vomiting. Cows score elevated, PRN Subutex administered with good effect. Pt able to void in urinal, PVR of 7. Care as documented. Ringing appropriately; call harmon within reach. Bed alarm in place
for safety.
[2025-01-14] MEDS: LOVENOX 40 MG SC (17:19)
[2025-01-14] MEDS: NSS IV (19:55)
[2025-01-15] VITALS (12 sets, daily range): BP systolic 117–153; BP diastolic 66–118
[2025-01-15] MEDS: CATAPRES 0.1 MG PO ×4 (01:01→17:08)
[2025-01-15] MEDS: NSS 1000 IV (03:55)
[2025-01-15 05:44] LABS: Hematocrit 38.1 % (39.0-52.0); Hemoglobin 12.9 g/dL (13.0-18.0); Mean Corp Hgb Conc. 33.9 g/dL (33.0-37.0); Mean Corpuscular Hgb 29.1 pg (27.0-31.0); Mean Platelet Volume 10.4 fL (7.4-10.4); Platelet Count 206 10^3/uL (130-400); Red Blood Cell Count 4.43 10^6/uL (4.70-6.10)
[2025-01-15 06:07] LABS: Blood Urea Nitrogen 8 mg/dl (9-20); Calcium 8.8 mg/dl (8.4-10.2); Carbon Dioxide 26 mmol/L (22-30); Chloride 109 mmol/L (98-107); Estimated Creatinine Clearance > 125 ml/min; Glucose 100 mg/dl (70-99); Potassium 3.5 mmol/L (3.5-5.1); Sodium 142 mmol/L (135-145); eGFR > 60.00
--- NOTE | 2025-01-15 08:01 | W.PN.NEURO.1 ---
Today's Communication / Plan
-
.
Subjective/Objective
Subjective Data
Date of Service: January 15, 2025
Neurology follow-up note
24-hour events: Afebrile, transiently tachycardic last night, normotensive in the morning. No reported to documented seizures.
Mr. Reddy recalls at least 2 episodes of syncope/syncope with associated head trauma prior to admission following multiple episodes of emesis. No reports of headache, engine cognition or current vertigo. No history of febrile seizures or
epilepsy.
MAR:Buprenorphine 8 mg given on 01/14/25 21:13
Routine EEG (01/14/2025)�intermittent generalized slowing, excessive beta activity.
Brain MRI�pending
PMH: opioid dependance, history of symptomatic seizures?
PSH: none
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
FH: father�alcohol addiction
All: Penicillin, Zofran
ROS: Constitutional: Negative. Negative for chills, fever and unexpected weight change.
HENT: Negative for ear pain, hearing loss, tinnitus and trouble swallowing.
Eyes: Negative. Negative for photophobia, pain and visual disturbance.
Respiratory: Negative for cough, choking and shortness of breath.
Cardiovascular: Positive for recurrent presyncope/syncope
Gastrointestinal: Positive for nausea, hiccups
Endocrine: Negative. Negative for cold intolerance.
Genitourinary: Negative for dysuria, flank pain and urgency.
Musculoskeletal: Negative for back pain, gait problem, neck pain and neck stiffness.
Skin: Negative for rash.
Allergic/Immunologic: Negative. Negative for immunocompromised state.
Neurological: Positive for intermittent tremor
Psychiatric/Behavioral: Negative for behavioral problems, confusion and hallucinations.
General: Well developed. In no acute distress.
Cardio: Regular rate and rhythm without murmur. Extremities are without cyanosis or edema.
Neuro:
Mental Status: Alert, oriented to person, place, and date. Impaired attention and recall good fund of knowledge. Follows complex requests. Comprehension, naming, and repetition intact.
Cranial Nerves: Pupils are equally round and reactive to light. EOMs full. Blinks to threat bilaterally no ptosis. No nystagmus. V1-V3 intact to light touch and pinprick bilaterally, symmetric. Face symmetric. Normal hearing AU. The palate
elevated well. SCMs and traps 5/5. Tongue midline. No dysarthria.
Motor: Normal bulk and tone. No pronator or arm drift. Strength 5/5 throughout. No clonus.
Reflexes: Limited exam due to positioning cooperation and restraints
Sensory: Limited exam due to poor attention
Coordination: Intermittent right leg tremor
Gait: deferred
No evidence of facial or cranial laceration.
Assessment and Plan:
I. Probable early posttraumatic seizure.
II. Mixed encephalopathy (toxic, metabolic)
III. Opioid dependence
-Seizure precautions
-Ativan 2 mg IV as needed for seizures lasting for 2 minutes
-Continue IV thiamine
-Brain MRI without reid
-Addictive psychiatry consult
I personally reviewed all radiology and labs along with past medical records pertinent to current medical problems. Total time spent in patient care is 37 minutes.
Thank you for allowing us to participate in the care of this patient. We will continue to follow. Please do not hesitate to contact us with any questions or concerns.
Objective Data
Vital Signs
Temp Pulse Resp BP Pulse Ox
36.6 C 69 11 131/92 97
01/15/25 07:33 01/15/25 06:00 01/15/25 06:00 01/15/25 06:00 01/15/25 06:00
Lab Results
01/15/25 05:23
01/15/25 05:23
Sodium 142 mmol/L (135-145) 01/15/25 05:23
Potassium 3.5 mmol/L (3.5-5.1) 01/15/25 05:23
BUN 8 mg/dl (9-20) L 01/15/25 05:23
Glucose 100 mg/dl (70-99) H 01/15/25 05:23
Calcium 8.8 mg/dl (8.4-10.2) 01/15/25 05:23
Ur Buprenorphine Negative (Negative) 01/13/25 19:17
Patient Allergies
Penicillins Allergy (Verified 01/13/25 14:44)
Unknown
ondansetron [From Zofran] Adverse Reaction (Verified 01/13/25 20:11)
Agitation
Vital Signs and Labs
-
Vital Signs and Labs:
Vital Signs
Temp Pulse Resp BP Pulse Ox
36.6 C 69 11 131/92 97
01/15/25 07:33 01/15/25 06:00 01/15/25 06:00 01/15/25 06:00 01/15/25 06:00
Lab Results
01/15/25 05:23
01/15/25 05:23
Sodium 142 mmol/L (135-145) 01/15/25 05:23
Potassium 3.5 mmol/L (3.5-5.1) 01/15/25 05:23
BUN 8 mg/dl (9-20) L 01/15/25 05:23
Glucose 100 mg/dl (70-99) H 01/15/25 05:23
Calcium 8.8 mg/dl (8.4-10.2) 01/15/25 05:23
Ur Buprenorphine Negative (Negative) 01/13/25 19:17
Medications
-
Medications:
Generic Name Dose Route Start Last Admin
Trade Name Freq PRN Reason Stop Dose Admin
Buprenorphine 0 mg 01/15/25 08:00
Buprenorphine 8 Mg Sl Tablet SL 01/29/25 07:59
DAILY NICOLA
Buprenorphine 4 mg 01/15/25 11:00
Buprenorphine 2 Mg Sl Tablet SL
ONCE PRN PRN
opioid cravings/withdrawal sx
Buprenorphine 16 mg 01/15/25 09:00
Buprenorphine 8 Mg Sl Tablet SL 01/15/25 09:01
ONCE ONE
Clonidine HCl 0.1 mg 01/14/25 00:00 01/15/25 05:13
Clonidine 0.1 Mg Tablet PO 02/11/25 00:00 0.1 mg
Q6 NICOLA Administration
Enoxaparin Sodium 40 mg 01/14/25 18:00 01/14/25 17:19
Enoxaparin Sodium 40 Mg/0.4 Ml Syringe SC 02/11/25 17:59 40 mg
QPM NICOLA Administration
Lorazepam 2 mg 01/13/25 20:03 01/14/25 04:13
Lorazepam 2 Mg/Ml Vial IV 02/10/25 20:02 2 mg
Q3HPRN PRN Administration
seizure/withdraw
Sodium Chloride 0 flush 01/13/25 21:00
Sodium Chloride 0.9% (Flush) Syringe IV 02/10/25 20:59
PER PROTOCOL NICOLA
Tamsulosin HCl 0.8 mg 01/14/25 11:00 01/15/25 08:33
Tamsulosin 0.4 Mg Capsule PO 02/11/25 10:59 0.8 mg
DAILY NICOLA Administration
Thiamine HCl 100 mg 01/14/25 11:00 01/15/25 08:33
Thiamine (100 Mg/Ml) 2 Ml Vial IV 01/16/25 08:01 100 mg
DAILY NICOLA Administration
Home Medications
-
Home Medications
acetaminophen 300 mg-codeine 30 mg tablet 1 tab PO .TAPER 01/13/25
clonazepam 2 mg tablet 2 mg PO .TAPER 01/13/25
clonidine HCl 0.1 mg tablet 0.1 mg PO .TAPER 01/13/25
loperamide 2 mg tablet (Anti-Diarrheal (loperamide)) 2 mg PO TIDPRN PRN diarrhea 01/13/25
ondansetron HCl 4 mg tablet 4 mg PO Q8HPRN PRN nausea 01/13/25
[2025-01-15] MEDS: FLOMAX 0.8 MG PO (08:33)
[2025-01-15] MEDS: THIAMINE INJECTION 100 MG IV (08:33)
[2025-01-15] MEDS: SUBUTEX 12 MG SL (11:20)
[2025-01-15] MEDS: SUBUTEX 4 MG SL (11:21)
[2025-01-15] MEDS: TUMS CHEWABLE TABLET 400 MG PO ×2 (13:56→22:08)
[2025-01-15] MEDS: PROTONIX 40 MG PO (13:56)
--- NOTE | 2025-01-15 14:50 | W.PN.HOSP.TC ---
Today's Communication/Plan
-
continue cows/buprenorphine
mr brain today
ecnourage oral intak
Assessment / Plan
Assessment / Plan
1. Opioid withdrawal
-Patient has been snorting Hector for last 10 years or so
-Have history of withdrawal/seizures in the past
-UDS reviewed.
-Currently going through opioid withdrawal
-Maintain on COWS protocol, last check of 5
-On buprenorphine per protocol
2. Nausea/vomiting - Improving
Diarrhea
-as part of withdrawal
-symptomatic care
3. Seizure episode
-neuro evaluation requested
-CT head neg
-MR brain pending today
-As needed Ativan for further seizure episode
4. Urinary retention
-Bladder scan/straight cath protocol active, required straight cath x 2
-Flomax added to regimen
5. Rule out orthostatic hypotension
-Vital check ordered
DVT PPX heparin
Full code
Total time spent ; 54 mins
Anticipated Discharge: 24 - 48 hours
Subjective/Interval History
-
Date of Service: January 15, 2025
no complains overnight
somnolent
afebrile
no n/v
Objective Data
-
Labs:
Laboratory Results
01/15/25
05:23
WBC 9.0
Hgb 12.9 L
Hct 38.1 L
Plt Count 206 D
Sodium 142
Potassium 3.5
Chloride 109 H
Carbon Dioxide 26
BUN 8 L
Creatinine 0.7
Glucose 100 H
Calcium 8.8
Vital Signs:
Vital Signs
Temp Pulse Resp BP Pulse Ox
97.7 F 66 14 134/80 100
01/15/25 12:19 01/15/25 14:00 01/15/25 14:00 01/15/25 14:00 01/15/25 14:00
I&O
01/14/25 01/15/25 01/16/25
06:59 06:59 06:59
Output Total 850 / 850 750 / 750 800 / 800
Balance -850 / -850 -750 / -750 -800 / -800
Review of Systems
-
Unable to obtain full review of systems at this time due to: Acuity
Respiratory: Reports No Symptoms
Cardiac: Reports No Symptoms
Abdomen/GI: Reports No Symptoms
Physical Exam
-
General: No Apparent Distress and Comfortable
HEENT: Negative PERRLA (b/l dilated pupils) or Oxygen
Respiratory: Clear to Auscultation
Cardiac: Regular Rhythm and S1/S2; Negative Murmur or Rub
GI: Soft, Nontender and Nondistended
Musculoskeletal: No Edema
Neuro: Awake, Alert, Oriented, No Motor Deficits and Nonfocal/Grossly Intact
Psych: Calm
[2025-01-15] MEDS: LOVENOX 40 MG SC (17:08)
--- NOTE | 2025-01-15 20:33 | PTCARENOTE ---
Pt taken down to MRI by this RN, PCT assisted with transport. Guards remained present at Pt bedside and RN remained with Pt throughout MRI. Pt transported back to floor. Pt resting comfortably in bed, Call light in reach.
--- NOTE | 2025-01-15 22:17 | PTCARENOTE ---
Pt AAOx3. neuro checks assessed as ordered, pupils do remain a 5 with brisk pupillary response, other aspects of assessment WNL. Please see intervention for full assessment of neuro check. Pt NSR on monitor. RA, no SOB. Pt without episodes of emesis
thus far during this RNs shift. Pt provided with oral care supplies. Assessment as documented. Call light in reach. correctional facility guards at bedside.
[2025-01-16] VITALS (12 sets, daily range): BP systolic 124–167; BP diastolic 86–117; PULSE 80–108; O2SAT 96
[2025-01-16] MEDS: CATAPRES 0.1 MG PO ×2 (00:23→05:28)
[2025-01-16 05:31] LABS: Hematocrit 39.9 % (39.0-52.0); Hemoglobin 13.1 g/dL (13.0-18.0); Mean Corp Hgb Conc. 32.8 g/dL (33.0-37.0); Mean Corpuscular Hgb 28.2 pg (27.0-31.0); Mean Corpuscular Volume 85.8 fL (80.0-94.0); Mean Platelet Volume 9.3 fL (7.4-10.4); Platelet Count 208 10^3/uL (130-400); Red Blood Cell Count 4.65 10^6/uL (4.70-6.10); Red Cell Dist. Width 13.5 % (11.5-14.5); White Blood Cell Count 7.6 10^3/uL (4.8-10.8)
[2025-01-16 05:54] LABS: Blood Urea Nitrogen 8 mg/dl (9-20); Calcium 9.1 mg/dl (8.4-10.2); Carbon Dioxide 28 mmol/L (22-30); Chloride 103 mmol/L (98-107); Estimated Creatinine Clearance > 125 ml/min; Glucose 90 mg/dl (70-99); Potassium 3.5 mmol/L (3.5-5.1); Sodium 137 mmol/L (135-145); eGFR > 60.00
[2025-01-16] MEDS: SUBUTEX 16 MG SL (08:36)
[2025-01-16] MEDS: PROTONIX 40 MG PO (08:36)
[2025-01-16] MEDS: FLOMAX 0.8 MG PO (08:37)
[2025-01-16] MEDS: THIAMINE INJECTION 100 MG IV (08:37)
--- NOTE | 2025-01-16 10:24 | W.PN.NEURO.1 ---
Today's Communication / Plan
-
.
Subjective/Objective
Subjective Data
Date of Service: January 16, 2025
Neurology follow-up note
24-hour events: Afebrile, transiently tachycardic last night, normotensive. No reported to documented seizures.
MAR:Buprenorphine 16 mg given on 01/16/25 08:36
Routine EEG (01/14/2025)�intermittent generalized slowing, excessive beta activity.
Brain MRI�mild atrophy
PMH: opioid dependance, history of symptomatic seizures?
PSH: none
SH: lived with mother before recent incarceration, works in heating and conditioning service
FH: father�alcohol addiction
All: Penicillin, Zofran
ROS: Constitutional: Negative. Negative for chills, fever and unexpected weight change.
HENT: Negative for ear pain, hearing loss, tinnitus and trouble swallowing.
Eyes: Negative. Negative for photophobia, pain and visual disturbance.
Respiratory: Negative for cough, choking and shortness of breath.
Cardiovascular: Positive for recurrent presyncope/syncope
Gastrointestinal: Positive for nausea, hiccups
Endocrine: Negative. Negative for cold intolerance.
Genitourinary: Negative for dysuria, flank pain and urgency.
Musculoskeletal: Negative for back pain, gait problem, neck pain and neck stiffness.
Skin: Negative for rash.
Allergic/Immunologic: Negative. Negative for immunocompromised state.
Neurological: Positive for intermittent tremor
Psychiatric/Behavioral: Negative for behavioral problems, confusion and hallucinations.
General: Well developed. In no acute distress.
Cardio: Regular rate and rhythm without murmur. Extremities are without cyanosis or edema.
Neuro:
Mental Status: Alert, oriented to person, place, and date. Increased processing time. Impaired attention and recall good fund of knowledge. Follows complex requests. Comprehension, naming, and repetition intact.
Cranial Nerves: Pupils are equally round and reactive to light. EOMs full. Blinks to threat bilaterally no ptosis. No nystagmus. V1-V3 intact to light touch and pinprick bilaterally, symmetric. Face symmetric. Normal hearing AU. The palate
elevated well. SCMs and traps 5/5. Tongue midline. No dysarthria.
Motor: Normal bulk and tone. No pronator or arm drift. Strength 5/5 throughout. No clonus.
Reflexes: Limited exam due to positioning cooperation and restraints
Sensory: Limited exam due to poor attention
Coordination: Intermittent right leg tremor
Gait: deferred
No evidence of facial or cranial laceration.
Assessment and Plan:
I. Probable early posttraumatic seizure.
II. Mixed mild encephalopathy (toxic, metabolic), stable
III. Opioid dependence
-Seizure precautions
-Ativan 2 mg IV as needed for seizures lasting for 2 minutes
-Continue thiamine
-Outpatient neurology follow-up
-Please recall neurology services any questions or concerns
I personally reviewed all radiology and labs along with past medical records pertinent to current medical problems. Total time spent in patient care is 35 minutes.
Thank you for allowing us to participate in the care of this patient. Please do not hesitate to contact us with any questions or concerns.
Objective Data
Vital Signs
Temp Pulse Resp BP Pulse Ox
36.8 C 83 8 130/111 98
01/16/25 07:00 01/16/25 10:00 01/16/25 10:00 01/16/25 10:00 01/16/25 02:47
Lab Results
01/16/25 05:22
01/16/25 05:22
Sodium 137 mmol/L (135-145) 01/16/25 05:22
Potassium 3.5 mmol/L (3.5-5.1) 01/16/25 05:22
BUN 8 mg/dl (9-20) L 01/16/25 05:22
Glucose 90 mg/dl (70-99) 01/16/25 05:22
Calcium 9.1 mg/dl (8.4-10.2) 01/16/25 05:22
Ur Buprenorphine Negative (Negative) 01/13/25 19:17
Patient Allergies
Penicillins Allergy (Verified 01/13/25 14:44)
Unknown
ondansetron [From Zofran] Adverse Reaction (Verified 01/13/25 20:11)
Agitation
Vital Signs and Labs
-
Vital Signs and Labs:
Vital Signs
Temp Pulse Resp BP Pulse Ox
36.8 C 83 8 130/111 98
01/16/25 07:00 01/16/25 10:00 01/16/25 10:00 01/16/25 10:00 01/16/25 02:47
Lab Results
01/16/25 05:22
01/16/25 05:22
Sodium 137 mmol/L (135-145) 01/16/25 05:22
Potassium 3.5 mmol/L (3.5-5.1) 01/16/25 05:22
BUN 8 mg/dl (9-20) L 01/16/25 05:22
Glucose 90 mg/dl (70-99) 01/16/25 05:22
Calcium 9.1 mg/dl (8.4-10.2) 01/16/25 05:22
Ur Buprenorphine Negative (Negative) 01/13/25 19:17
Medications
-
Medications:
Generic Name Dose Route Start Last Admin
Trade Name Freq PRN Reason Stop Dose Admin
Buprenorphine 16 mg 01/16/25 08:00 01/16/25 08:36
Buprenorphine 8 Mg Sl Tablet SL 01/30/25 07:59 16 mg
DAILY NICOLA Administration
Calcium Carbonate 400 mg 01/15/25 11:49 01/15/25 22:08
Calcium Antacid 200 Mg (Calcium Carbonate 500 Mg) Chew Tablet PO 02/12/25 11:48 400 mg
Q4HPRN PRN Administration
Heart burn
Clonidine HCl 0.1 mg 01/14/25 00:00 01/16/25 05:28
Clonidine 0.1 Mg Tablet PO 02/11/25 00:00 0.1 mg
Q6 NICOLA Administration
Enoxaparin Sodium 40 mg 01/14/25 18:00 01/15/25 17:08
Enoxaparin Sodium 40 Mg/0.4 Ml Syringe SC 02/11/25 17:59 40 mg
QPM NICOLA Administration
Lorazepam 2 mg 01/13/25 20:03 01/14/25 04:13
Lorazepam 2 Mg/Ml Vial IV 02/10/25 20:02 2 mg
Q3HPRN PRN Administration
seizure/withdraw
Pantoprazole Sodium 40 mg 01/15/25 12:00 01/16/25 08:36
Pantoprazole 40 Mg Delayed Release Tablet PO 02/12/25 11:59 40 mg
DAILY NICOLA Administration
Sodium Chloride 0 flush 01/13/25 21:00
Sodium Chloride 0.9% (Flush) Syringe IV 02/10/25 20:59
PER PROTOCOL NICOLA
Tamsulosin HCl 0.8 mg 01/14/25 11:00 01/16/25 08:37
Tamsulosin 0.4 Mg Capsule PO 02/11/25 10:59 0.8 mg
DAILY NICOLA Administration
Home Medications
-
Home Medications
acetaminophen 300 mg-codeine 30 mg tablet 1 tab PO .TAPER 01/13/25
clonazepam 2 mg tablet 2 mg PO .TAPER 01/13/25
clonidine HCl 0.1 mg tablet 0.1 mg PO .TAPER 01/13/25
loperamide 2 mg tablet (Anti-Diarrheal (loperamide)) 2 mg PO TIDPRN PRN diarrhea 01/13/25
ondansetron HCl 4 mg tablet 4 mg PO Q8HPRN PRN nausea 01/13/25
[2025-01-16] MEDS: COZAAR 25 MG PO (12:04)
--- NOTE | 2025-01-16 14:48 | CM ---
Patient from [facility]
Patient to return to [facility]
IMM - n/a
PLAN: Return to [facility]
The for report [phone], fax [phone].
--- NOTE | 2025-01-16 15:24 | W.PN.HOSP.TC ---
Today's Communication/Plan
-
d/c to correction facility
Assessment / Plan
Assessment / Plan
1. Opioid withdrawal -resolved
-Patient has been snorting [place] for last 10 years or so
-Have history of withdrawal/seizures in the past
-UDS reviewed.
-On buprenorphine per protocol
2. Nausea/vomiting - Resolved
Diarrhea
-as part of withdrawal
-symptomatic care
3. Seizure episode
-neuro evaluated and no need of AED
-CT head neg
-MR brain normal
-As needed Ativan for further seizure episode
4. Urinary retention -resolved
-Bladder scan/straight cath protocol active, required straight cath x 2
-Flomax added to regimen
5. Essential HTN
-start on losartan for BP control
DVT PPX heparin
Full code
More than 30 minutes spent in discharge including
Final examination of the patient
Summarizing hospital stay
Instructions for continuing care to all relevant caregivers
Preparation of discharge records, prescriptions, and referral forms
Total time spent (in minutes): 38 mins
Anticipated Discharge: Today
Subjective/Interval History
-
Date of Service: January 16, 2025
no issues overnight
feeling better
Objective Data
-
Labs:
Laboratory Results
01/16/25
05:22
WBC 7.6
Hgb 13.1
Hct 39.9
Plt Count 208
Sodium 137
Potassium 3.5
Chloride 103
Carbon Dioxide 28
BUN 8 L
Creatinine 0.7
Glucose 90
Calcium 9.1
Vital Signs:
Vital Signs
Temp Pulse Resp BP Pulse Ox
98.7 F 98 11 149/113 98
01/16/25 14:29 01/16/25 13:35 01/16/25 13:35 01/16/25 12:00 01/16/25 02:47
I&O
01/15/25 01/16/25 01/17/25
06:59 06:59 06:59
Intake Total 480 / 480 1200 / 1200
Output Total 750 / 750 2250 / 2250 1200 / 1200
Balance -750 / -750 -1770 / -1770 0 / 0
Review of Systems
-
Respiratory: Reports No Symptoms
Cardiac: Reports No Symptoms
Abdomen/GI: Reports No Symptoms
Physical Exam
-
General: No Apparent Distress and Comfortable
HEENT: Negative PERRLA (b/l dilated pupils) or Oxygen
Respiratory: Clear to Auscultation
Cardiac: Regular Rhythm and S1/S2; Negative Murmur or Rub
GI: Soft, Nontender and Nondistended
Musculoskeletal: No Edema
Neuro: Awake, Alert, Oriented, No Motor Deficits and Nonfocal/Grossly Intact
Psych: Calm
--- NOTE | 2025-01-17 15:29 | W.DCSUMMARY ---
Discharge Summary
Discharge Data
Date of Admission: 01/13/25
Date of Discharge: 01/16/25
-
Pending Results: No
Hospital Course
Discharging Physician : Dr Brady Holguin
Disposition : To correction facility
Primary care physician : [facility] facility staff
Principal Discharge diagnosis :
Opiate withdrawal
Episode of seizures
Essential hypertension
Urinary retention
Chronic Discharge diagnosis :
History of opioid abuse
Hospital Course :
Patient is a 29-year-old male was sent from [facility] after patient was noted to having abdominal pain nausea and tachycardia. Patient had a fall at the present no reported head injury. In ER patient was noted to having
episodes of seizures. Patient have history of narcotic abuse and there was concern about narcotic withdrawal. Patient have reported to be using narcotics for 10 years and more with previous history of seizures and withdrawals. Patient was started
on opioid withdrawal protocol with buprenorphine provided based on protocol. Neurology was involved in care and initial CT head followed by MRI head did not show any acute abnormality.EEG did not show any clear seizure activity. Neurology
recommended continue treatment of opiate withdrawal, no specific AED required. Post improvement of opiate withdrawal patient was discharged back to correctional facility.
Patient likely have undiagnosed hypertension and losartan added to regimen.
Important imaging findings :
None
Procedure findings :
None
Discharge Plan
-
Patient Disposition: [facility]
Discharge Diagnosis/Procedures: Opioid withdrawal, Hypertension
Condition: Fair
Diet: Regular
Activity: As tolerated
Driving Restrictions: As prior to admission
Bathing Restrictions: OK to Shower
Referrals:
[facility] [Family Provider] -
Prescriptions:
New
pantoprazole 40 mg Tablet,Delayed Release (Dr/Ec)
40 mg PO DAILY Qty: 30 0RF
losartan 25 mg Tablet
25 mg PO DAILY Qty: 30 0RF
loperamide [Imodium A-D] 2 mg capsule
2 mg PO Q6H PRN (Reason: loose stool) Qty: 14 0RF
Continued
ondansetron HCl 4 mg Tablet
4 mg PO Q8HPRN PRN (Reason: nausea)
Discontinued
clonidine HCl 0.1 mg Tablet
0.1 mg PO .TAPER
Patient Comments:
01/13/25-01/16/25=0.1mg TID, 01/17/25-01/18/25=0.1mg BID, 01/19/25-01/20/25=0.05mg BID
loperamide [Anti-Diarrheal (loperamide)] 2 mg Tablet
2 mg PO TIDPRN PRN (Reason: diarrhea)
acetaminophen-codeine 300-30 mg Tablet
1 tab PO .TAPER
Patient Comments:
01/13/25-01/15/25=2 tab TID, 01/16/25-01/17/25=2 tab BID, 01/18/25-01/19/25=1 tab BID, 01/20/25-01/20/25=1 tab HS
clonazepam 2 mg Tablet
2 mg PO .TAPER
Patient Comments:
01/13/25-01/15/25=2mg BID, 01/16/25-01/18/25=1.5mg BID, 01/19/25-01/21/25=1mg BID, 01/22/25-01/24/25=0.5mg BID, 01/25/25-01/27/25=0.5mg HS
Discharge Orders:
Discharge Patient (As Directed); Ordered 01/16/25
Ordered By: Brady Holguin
Discharge Date and Time
Discharge Date/Time: 01/16/25 14:47
Print Language: NICARAGUAN
== END 2025-01-16 14:47 | DRG 896 ==
LOC: IMU 19:02
PROVIDERS: Nurse Practitioner; Nurse Practitioner Family; ADMITTING PHYSICIAN Internal Medicine; ATTENDING PHYSICIAN Hospitalist; CONSULT PHYSICIAN Psychiatry & Neurology Neurology; EMERGENCY PHYSICIAN Emergency Medicine
DX: F11.23 Opioid dependence with withdrawal (principal); G92.8 Other toxic encephalopathy; R56.9 Unspecified convulsions; I95.1 Orthostatic hypotension; I10 Essential (primary) hypertension; R33.9 Retention of urine, unspecified; W01.10XA Fall on same level from slipping, tripping and stumbling with subsequent striking against unspecified object, initial encounter; Y93.89 Activity, other specified; Y92.143 Cell of prison as the place of occurrence of the external cause; Z88.0 Allergy status to penicillin; Z88.8 Allergy status to other drugs, medicaments and biological substances; Z81.1 Family history of alcohol abuse and dependence; Z11.52 Encounter for screening for COVID-19
CPT/HCPCS: 70450; 70551; 80048; 80053; 80076; 80306; 80307; 82077; 82550; 82962; 83735; 84146; 84439; 84443; 85025; 85027; 87070; 87147; 87502; 87811; 93005; 95816; 96361; 96374; 96376; 97162; 99291